=== PATIENT | female | born 1975 | race Two or more races ===

== ENCOUNTER 2024-11-14 06:45 | Day surgery (SDC) | payer OTHER ==
[2024-11-13 09:09] LABS: EOS # 0.12 (0.04-0.54); EOS % 1.9 % (0.7-7.0); HEMOGLOBIN 11.7 g/dL (11.2-15.7); LYMPH # 1.99 (1.18-3.74); LYMPH % 31.6 % (19.3-53.1); MEAN CORPUSCULAR HEMOGLOBIN 29.8 pg (25.6-32.2); MONO # 0.45 (0.24-0.82); MONO % 7.1 % (4.7-12.5); NEUT # 3.66 (1.56-6.13); NEUT % 58.1 % (34.0-71.1); PLATELET COUNT 322 K/uL (163-369); RED BLOOD COUNT 3.92 M/uL (3.93-5.22); RED CELL DISTRIBUTION WIDTH 12.9 % (11.6-14.4)
[2024-11-13 09:10] LABS: PH,URINE 6.5 (5.0-8.0); URINE APPEARANCE Clear; URINE BILIRRUBIN Negative (NEGATIVE); URINE BLOOD NHT; URINE COLOR Yellow; URINE GLUCOSE Negative (NEGATIVE); URINE KETONE Trace (NEGATIVE); URINE LEUKOCYTE Negative; URINE NITRATE Negative; URINE PROTEIN Negative (NEGATIVE)
[2024-11-13 09:12] LABS: URINE BACTERIA 669.4 uL (0.0-1933); URINE EPITHELIAL CELLS 11.8 uL (0.0-38.8); URINE RBC 41.8 uL (0.0-20.8); URINE WBC 6.6 uL (0.0-23.2)
[2024-11-13 09:25] LABS: URINE CAST 0.29 uL (0.0-1.40)
[2024-11-13 09:37] LABS: INR 0.94; PARTIAL THROMBOPLASTIN TIME 25.4 SECONDS (22.0-34.0); PROTHROMBIN TIME 10.3 SECONDS (9.0-11.5)
[2024-11-13 09:46] LABS: COVID-19 AG NEGATIVE (NEGATIVE)
[2024-11-13 10:17] LABS: ALBUMIN 3.8 gm/dL (3.4-5.0); BILIRUBIN TOTAL 0.42 mg/dL (0.3-1.2); CALCIUM 9.2 mg/dL (8.5-10.1); CREATININE SERUM 0.69 mg/dL (0.55-1.02); GFR 90.05; GLOBULINA 3.3 G/DL (2.4-3.5); POTASSIUM 4.17 mEq/L (3.5-5.1); TOTAL PROTEIN 7.1 gm/dL (6.4-8.2)
[2024-11-13 11:27] VITALS: BP 99/66
[~2024-11-14] VITALS: Ht 165.1 cm; Wt 70.3 kg
[~2024-11-14 06:45] MED LIST: MORPHINE SULFATE 4 MG/ML VIAL IV ONE; MULTI VITAMIN1 EACH PO
[2024-11-14] MEDS ORDERED: CEFAZOLIN SODIUM 1,000 MG VIAL ONE (08:57)
== END 2024-11-14 18:00 | disposition home or self-care (01) ==
LOC: CIR.AMB 06:45
PROVIDERS: ATTEND Surgery
DX: D05.01 Lobular carcinoma in situ of right breast (principal); Z88.5 Allergy status to narcotic agent